=== PATIENT | male | born 1955 | race Caucasian/White ===

== ENCOUNTER 2018-06-16 07:33 | Emergency (ER) | payer BC ==
[~2018-06-16] VITALS: Ht 180.3 cm; Wt 90.7 kg
[~2018-06-16 07:33] MED LIST: AML5T GT; ASPI81CH49 OR; ATEN-60 OR; BUSP10TA90 PO; DIPH25TA43 OR; DULO60CA OR; FENO5TAB OR; FOLI1TAB6 OR; GABA300C10 PO; HYDR200T36 OR; LISI-646 OR; METH2.5T3 PO; NIAC500T13 PO; OMEPRAZOLE PO; PREDPOW63 PO; SIMV-13 OR; TRAM50TA2 PO; VENL25TA2 PO; [UNRECOGNIZED DRUG - CODE] OR
[2018-06-16 08:29] LABS: Alanine Aminotransferase 28 U/L (16-61); Anion Gap 13 (5-15); Aspartate Aminotransferase 27 U/L (15-37); BUN/Creatinine Ratio 14.6; Blood Urea Nitrogen 13 mg/dL (7-18); Calcium 8.4 mg/dL (8.5-10.1); Carbon Dioxide 19 mmol/L (21-32); Chloride 107 mmol/L (98-107); GFR African American 111 mL/min; GFR Non-African American 92 mL/min; Glucose 89 mg/dL (74-106); Potassium 3.7 mmol/L (3.5-5.1); Sodium 139 mmol/L (136-145)
[2018-06-16 08:33] LABS: Alkaline Phosphatase 91 U/L (45-117); Bilirubin, Total 0.6 mg/dL (0.2-1.0); Total Protein 7.3 g/dL (6.4-8.2)
[2018-06-16 08:36] LABS: Basophils # (auto) 0.1 uL; Basophils % (auto) 0.7 % (0.0-2.0); Eosinophils # (auto) 0.4 uL; Eosinophils % (auto) 3.5 % (0.0-7.0); Hemoglobin 14.8 g/dL (13.5-17.5); Lymphocytes % (auto) 19.6 % (10.0-50.0); Mean Corpuscular Hemoglobin 31.3 pg (28.0-32.0); Mean Corpuscular Hgb Conc. 34.4 g/dL (32.0-36.0); Mean Corpuscular Volume 91.1 fL (80.0-100.0); Monocytes # (auto) 0.9 uL; Monocytes % (auto) 8.5 % (0.0-12.0); Neutrophils # (auto) 7.1 uL; Neutrophils % (auto) 67.7 % (37.0-80.0); Nucleated Red Blood Cells % 0.1 %; Platelet Count (auto) 279 10^3/uL (140-450); Red Blood Cells 4.71 10^6/uL (4.5-5.90); Red Cell Distribution Width 15.7 % (11.8-14.3); White Blood Cell 10.4 10^3/uL (4.4-10.8)
[2018-06-16] MEDS: SODIUM CHLORIDE 0.9% 1,000 ML IV ONE ×2 (09:11→09:50)
[2018-06-16 10:28] VITALS: BP 130/89
[2018-06-16 11:30] LABS: Urine WBC None Seen /hpf (0 - 3)
[2018-06-16 11:53] LABS: Urine Bacteria NONE SEEN /hpf (None Seen); Urine Blood Negative /uL (Negative); Urine Mucus FEW (None Seen); Urine Specific Gravity 1.015 (1.001-1.035)
[2018-06-16 13:50] LABS: Alcohol, Urine < 3.0 mg/dL (0-5); Amphetamine Screen, Urine NEGATIVE (NEGATIVE); Barbiturate Scree,Urine NEGATIVE (NEGATIVE); Benzodiazephine Screen, Urine POSITIVE (NEGATIVE); Cannabinoid Screen, Urine POSITIVE (NEGATIVE); Cocaine Screen, Urine NEGATIVE (NEGATIVE); Opiate Scree,Urine NEGATIVE (NEGATIVE); Phencyclidine Screen, Urine NEGATIVE (NEGATIVE)
== END 2018-06-16 12:30 | disposition home or self-care (01) ==
LOC: EDBD 07:33 → ER 07:37
CPT/HCPCS: 36415 ×2; 70450 ×2; 80053 ×2; 80307 ×2; 81001 ×2; 84484 ×2; 85025 ×2; 93005 ×2; 96360 ×2; 96361 ×2; 99284; J7030

== ENCOUNTER 2018-08-19 03:18 | Inpatient (IN) | payer BC ==
[~2018-08-19] VITALS: Ht 180.3 cm; Wt 86.0 kg
[2018-08-19] MEDS ORDERED: SODIUM CHLORIDE 0.9% 1,000 ML IV ONE ×2 (06:59)
[2018-08-19] MEDS ORDERED: THIAMINE 100mg/ml INJ (200mg/2ml VIAL) IV ONE ×2 (07:00→10:00)
[2018-08-19] MEDS ORDERED: chlordiazePOXIDE HCL 25 MG CAP PO ONE (07:00)
[2018-08-19 07:33] LABS: Basophils # (auto) 0 uL; Basophils % (auto) 0.4 % (0.0-2.0); Eosinophils # (auto) 0.1 uL; Eosinophils % (auto) 0.8 % (0.0-7.0); Hemoglobin 15.3 g/dL (13.5-17.5); Lymphocytes # (auto) 1.5 uL; Lymphocytes % (auto) 15.8 % (10.0-50.0); Mean Corpuscular Hemoglobin 31.1 pg (28.0-32.0); Mean Corpuscular Hgb Conc. 33.9 g/dL (32.0-36.0); Mean Corpuscular Volume 91.7 fL (80.0-100.0); Monocytes # (auto) 0.7 uL; Monocytes % (auto) 6.9 % (0.0-12.0); Neutrophils # (auto) 7.3 uL; Neutrophils % (auto) 76.1 % (37.0-80.0); Nucleated Red Blood Cells % 0.1 %; Platelet Count (auto) 248 10^3/uL (140-450); Red Blood Cells 4.91 10^6/uL (4.5-5.90); Red Cell Distribution Width 16.8 % (11.8-14.3); White Blood Cell 9.5 10^3/uL (4.4-10.8)
[2018-08-19 07:35] LABS: Urine Bacteria NONE SEEN /hpf (None Seen); Urine Blood Negative /uL (Negative); Urine WBC <1 /hpf (0 - 3)
[2018-08-19 07:40] LABS: Albumin 3.5 g/dL (3.4-5.0); BUN/Creatinine Ratio 8.1; Calcium 8.6 mg/dL (8.5-10.1)
[2018-08-19 07:42] LABS: Alcohol, Urine < 3.0 mg/dL (0-5); Amphetamine Screen, Urine NEGATIVE (NEGATIVE); Barbiturate Scree,Urine NEGATIVE (NEGATIVE); Benzodiazephine Screen, Urine POSITIVE (NEGATIVE); Cannabinoid Screen, Urine POSITIVE (NEGATIVE); Cocaine Screen, Urine NEGATIVE (NEGATIVE); Opiate Scree,Urine NEGATIVE (NEGATIVE); Phencyclidine Screen, Urine NEGATIVE (NEGATIVE)
[2018-08-19 07:43] LABS: Bilirubin, Total 0.7 mg/dL (0.2-1.0)
[2018-08-19 07:45] LABS: Salicylate < 1.7 mg/dL (2.8-20.0)
[2018-08-19 08:06] LABS: Acetaminophen < 2.0 ug/mL (10-30)
[2018-08-19] MEDS ORDERED: THIAMINE HCL 100 MG TAB PO ONE (08:30)
[2018-08-19] MEDS ORDERED: LORazepam 0.5 MG TAB PO ONE (09:30)
[2018-08-19] MEDS ORDERED: MORPHINE SULFATE 4 MG/ML SYR/VIAL IV PRN (10:00)
[2018-08-19] MEDS ORDERED: ACETAMINOPHEN 500 MG TAB PO PRN (10:00)
[2018-08-19] MEDS ORDERED: NALBUPHINE HCL 10 MG/1ml INJECTION IV PRN (10:00)
[2018-08-19] MEDS ORDERED: traMADol HCL 50 MG TAB PO PRN (10:00)
[2018-08-19] MEDS ORDERED: PROMETHAZINE HCL 25 MG/ML 1ML IV PRN (10:00)
[2018-08-19] MEDS ORDERED: NITROGLYCERIN 0.4 MG SL TAB SL PRN (10:00)
[2018-08-19] MEDS ORDERED: TEMAZEPAM 15 MG CAP PO PRN (10:00)
[2018-08-19] MEDS: SODIUM CHLORIDE 0.9% 1,000 ML IV SCH ×3 (10:33→21:41)
[2018-08-19] MEDS: THIAMINE 100mg/ml INJ (200mg/2ml VIAL) IV SCH (10:33)
[2018-08-19] MEDS: FOLIC ACID 1 MG TAB PO SCH (10:41)
[2018-08-19] MEDS: ASPirin 81 mg TAB PO SCH (10:41)
[2018-08-19] MEDS: ATORVASTATIN 20 MG TAB PO SCH (10:42)
[2018-08-19] MEDS: PANTOPRAZOLE 40 MG TAB PO SCH (10:42)
[2018-08-19] MEDS: HYDROXYCHLOROQUINE SULFATE 200 MG TAB PO SCH (10:44)
[2018-08-19] MEDS: busPIRone HCL 10 MG TAB PO SCH ×2 (10:45→21:20)
[2018-08-19] MEDS: DULoxetine HCL 30 MG CAP PO SCH (10:48)
[2018-08-19] MEDS: [UNRECOGNIZED DRUG - OTHER] OR SCH ×2 (10:49→22:00)
[2018-08-19] MEDS: ATENOLOL 50 MG TAB PO SCH (10:50)
[2018-08-19] MEDS: FENOFIBRATE 145MG TAB OR SCH (10:51)
[2018-08-19] MEDS: predniSONE 20 MG TAB PO SCH (10:54)
[2018-08-19] MEDS: amLODIPine BESYLATE 5 MG TAB PO SCH (10:56)
[2018-08-19] MEDS: LISINOPRIL 20 MG TAB PO SCH (10:56)
[2018-08-19] MEDS: chlordiazePOXIDE HCL 25 MG CAP PO SCH ×2 (13:07→18:00)
[2018-08-19] MEDS: VENLAFAXINE HCL 25MG TABLET PO SCH (16:09)
[2018-08-19] MEDS: chlordiazePOXIDE HCL 25 MG CAP PO PRN ×2 (17:13→21:20)
[2018-08-19] MEDS: LORazepam 0.5 MG TAB PO PRN (17:13)
[2018-08-19 21:47] VITALS: BP 128/73
[2018-08-19 21:59] LABS: Creatine Kinase IFCC 65 U/L (39-308)
[2018-08-20] MEDS: chlordiazePOXIDE HCL 25 MG CAP PO SCH ×5 (00:13→23:29)
[2018-08-20] MEDS: LORazepam 0.5 MG TAB PO PRN ×2 (00:15→08:19)
[2018-08-20 05:00] VITALS: BP 136/79
[2018-08-20 09:00] VITALS: BP 161/86
[2018-08-20] MEDS: FENOFIBRATE 145MG TAB OR SCH (10:00)
[2018-08-20] MEDS: [UNRECOGNIZED DRUG - OTHER] OR SCH ×2 (10:00→21:14)
[2018-08-20] MEDS: THIAMINE 100mg/ml INJ (200mg/2ml VIAL) IV SCH (10:00)
[2018-08-20] MEDS: DULoxetine HCL 30 MG CAP PO SCH (10:57)
[2018-08-20] MEDS: ATORVASTATIN 20 MG TAB PO SCH (10:57)
[2018-08-20] MEDS: VENLAFAXINE HCL 25MG TABLET PO SCH (10:58)
[2018-08-20] MEDS: ASPirin 81 mg TAB PO SCH (10:58)
[2018-08-20] MEDS: HYDROXYCHLOROQUINE SULFATE 200 MG TAB PO SCH (10:59)
[2018-08-20] MEDS: busPIRone HCL 10 MG TAB PO SCH ×2 (10:59→21:14)
[2018-08-20] MEDS: FOLIC ACID 1 MG TAB PO SCH (10:59)
[2018-08-20] MEDS: ATENOLOL 50 MG TAB PO SCH (11:00)
[2018-08-20] MEDS: amLODIPine BESYLATE 5 MG TAB PO SCH (11:00)
[2018-08-20] MEDS: LISINOPRIL 20 MG TAB PO SCH (11:01)
[2018-08-20] MEDS: PANTOPRAZOLE 40 MG TAB PO SCH (11:12)
[2018-08-20] MEDS: predniSONE 20 MG TAB PO SCH (11:12)
[2018-08-20] MEDS: SODIUM CHLORIDE 0.9% 1,000 ML IV SCH (11:15)
[2018-08-20] MEDS ORDERED: IOHEXOL 300 MG/ML 100ML BOTTLE IJ ONE (12:24)
[2018-08-20 14:14] VITALS: BP 154/84
[2018-08-20 16:27] VITALS: BP 137/80
[2018-08-20 22:00] VITALS: BP 112/69
[2018-08-21] MEDS: SODIUM CHLORIDE 0.9% 1,000 ML IV SCH ×2 (03:03→10:00)
[2018-08-21 05:00] VITALS: BP 158/89
[2018-08-21] MEDS: chlordiazePOXIDE HCL 25 MG CAP PO SCH ×2 (06:04→13:10)
[2018-08-21 08:00] VITALS: BP 142/83
[2018-08-21] MEDS: THIAMINE 100mg/ml INJ (200mg/2ml VIAL) IV SCH (10:00)
[2018-08-21] MEDS: ATENOLOL 50 MG TAB PO SCH (10:00)
[2018-08-21] MEDS: FENOFIBRATE 145MG TAB OR SCH (10:00)
[2018-08-21] MEDS: [UNRECOGNIZED DRUG - OTHER] OR SCH (10:00)
[2018-08-21] MEDS: VENLAFAXINE HCL 25MG TABLET PO SCH (10:17)
[2018-08-21] MEDS: HYDROXYCHLOROQUINE SULFATE 200 MG TAB PO SCH (10:17)
[2018-08-21] MEDS: busPIRone HCL 10 MG TAB PO SCH (10:18)
[2018-08-21] MEDS: DULoxetine HCL 30 MG CAP PO SCH (10:18)
[2018-08-21] MEDS: ASPirin 81 mg TAB PO SCH (10:18)
[2018-08-21] MEDS: ATORVASTATIN 20 MG TAB PO SCH (10:18)
[2018-08-21] MEDS: predniSONE 20 MG TAB PO SCH (10:18)
[2018-08-21] MEDS: PANTOPRAZOLE 40 MG TAB PO SCH (10:18)
[2018-08-21] MEDS: FOLIC ACID 1 MG TAB PO SCH (10:18)
[2018-08-21] MEDS: LISINOPRIL 20 MG TAB PO SCH (10:19)
[2018-08-21] MEDS: amLODIPine BESYLATE 5 MG TAB PO SCH (10:19)
== END 2018-08-21 13:20 | disposition short-term general hospital (02) | DRG 897 ==
LOC: ER 03:22 → TELE 09:58 → TELE-WESTW 11:35
PROVIDERS: ADMIT Internal Medicine; ATTEND Internal Medicine
DX: F10.231 Alcohol dependence with withdrawal delirium (principal); E11.9 Type 2 diabetes mellitus without complications; I10 Essential (primary) hypertension; E78.5 Hyperlipidemia, unspecified; M19.90 Unspecified osteoarthritis, unspecified site; F41.9 Anxiety disorder, unspecified; F17.210 Nicotine dependence, cigarettes, uncomplicated; E66.9 Obesity, unspecified; Z68.26 Body mass index [BMI] 26.0-26.9, adult; Z88.8 Allergy status to other drugs, medicaments and biological substances; Z80.1 Family history of malignant neoplasm of trachea, bronchus and lung; Z82.3 Family history of stroke; Z82.49 Family history of ischemic heart disease and other diseases of the circulatory system
CPT/HCPCS: 36415; 70487; 80053; 80307; 80329; 81001; 82550; 84484; 85025; 93005; 94761; 96360; 96361; G0378

== ENCOUNTER 2018-10-16 19:33 | Emergency (ER) | payer BC ==
[~2018-10-16] VITALS: Ht 180.3 cm; Wt 99.8 kg
[2018-10-16] MEDS ORDERED: SODIUM CHLORIDE 0.9% 1,000 ML IVB ONE (19:49)
[2018-10-16] MEDS ORDERED: LORazepam 2MG/ML-1ML VIAL IV ONE (20:00)
[2018-10-16 20:29] LABS: Basophils # (auto) 0.1 uL; Basophils % (auto) 0.9 % (0.0-2.0); Eosinophils # (auto) 0.4 uL; Eosinophils % (auto) 4.3 % (0.0-7.0); Hematocrit 45.5 % (41.0-53.0); Hemoglobin 15.3 g/dL (13.5-17.5); Lymphocytes # (auto) 3.6 uL; Lymphocytes % (auto) 36.2 % (10.0-50.0); Mean Corpuscular Hemoglobin 30.4 pg (28.0-32.0); Mean Corpuscular Hgb Conc. 33.6 g/dL (32.0-36.0); Mean Corpuscular Volume 90.5 fL (80.0-100.0); Monocytes # (auto) 0.9 uL; Monocytes % (auto) 8.9 % (0.0-12.0); Neutrophils % (auto) 49.7 % (37.0-80.0); Nucleated Red Blood Cells % 0.1 %; Platelet Count (auto) 287 10^3/uL (140-450); Red Blood Cells 5.02 10^6/uL (4.5-5.90); Red Cell Distribution Width 16.1 % (11.8-14.3)
[2018-10-16 20:35] LABS: Albumin 3.6 g/dL (3.4-5.0); Calcium 8.7 mg/dL (8.5-10.1); Magnesium 2.5 mg/dL (1.6-2.6); Potassium 3.6 mmol/L (3.5-5.1)
[2018-10-16 20:40] LABS: BUN/Creatinine Ratio 10.4; Bilirubin, Total 0.3 mg/dL (0.2-1.0); Total Protein 7.1 g/dL (6.4-8.2)
[2018-10-16 22:47] LABS: Amphetamine Screen, Urine NEGATIVE (NEGATIVE); Barbiturate Scree,Urine NEGATIVE (NEGATIVE); Benzodiazephine Screen, Urine NEGATIVE (NEGATIVE); Cannabinoid Screen, Urine NEGATIVE (NEGATIVE); Cocaine Screen, Urine NEGATIVE (NEGATIVE); Opiate Scree,Urine NEGATIVE (NEGATIVE); Phencyclidine Screen, Urine NEGATIVE (NEGATIVE)
[2018-10-16] MEDS ORDERED: SODIUM CHLORIDE 0.9% 1,000 ML IV ONE (23:00)
[2018-10-17] MEDS ORDERED: SODIUM CHLORIDE 0.9% 1,000 ML IV ONE
[2018-10-17 07:37] VITALS: BP 150/77
[2018-10-17] MEDS ORDERED: GABAPENTIN 100 MG CAP PO ONE (09:45)
[2018-10-17] MEDS ORDERED: HYDROcodone-ACET 5/325MG TAB PO ONE (09:45)
== END 2018-10-17 12:27 | disposition short-term general hospital (02) ==
LOC: ER 19:36
DX: R45.851 Suicidal ideations (principal); F10.229 Alcohol dependence with intoxication, unspecified; M19.90 Unspecified osteoarthritis, unspecified site; E78.5 Hyperlipidemia, unspecified; I10 Essential (primary) hypertension; F32.9 Major depressive disorder, single episode, unspecified; F17.210 Nicotine dependence, cigarettes, uncomplicated; F12.90 Cannabis use, unspecified, uncomplicated; Z88.8 Allergy status to other drugs, medicaments and biological substances; Z79.82 Long term (current) use of aspirin; Z79.899 Other long term (current) drug therapy
CPT/HCPCS: 36415; 80053; 80307; 80320; 83735; 85025; 94761; 96374; 99285; J2060; J7030

== ENCOUNTER 2019-01-05 20:42 | Emergency (ER) | payer BC ==
[~2019-01-05] VITALS: Ht 180.3 cm; Wt 117.9 kg
[2019-01-05] MEDS ORDERED: ONDANSETRON HCL 4 MG/2 ML VIAL IV ONE (21:00)
[2019-01-05] MEDS ORDERED: MORPHINE SULFATE 4 MG/ML SYR/VIAL IV ONE ×2 (21:00→22:30)
[2019-01-05 21:28] LABS: Hematocrit 43.3 % (41.0-53.0); Hemoglobin 14.2 g/dL (13.5-17.5); Mean Corpuscular Hgb Conc. 32.9 g/dL (32.0-36.0); Mean Corpuscular Volume 91.1 fL (80.0-100.0); Platelet Count (auto) 260 10^3/uL (140-450); Red Blood Cells 4.76 10^6/uL (4.5-5.90); Red Cell Distribution Width 16.6 % (11.8-14.3); White Blood Cell 12.8 10^3/uL (4.4-10.8)
[2019-01-05 21:36] LABS: Band Neutrophils % (manual) 0; Basophils % (manual) 0 (0.0-2.0); Blast Cells 0; Metamyelocytes % 0; Myelocytes % 0; Promyelocytes % 0; Reactive Lymphocytes 0
[2019-01-05 21:39] LABS: INR < 0.93 (0.9-1.15)
[2019-01-05 21:41] LABS: Eosinophils % (manual) 1 (0-7); Lymphocytes % (manual) 15 (10.0-50.0); Monocytes % (manual) 10 (0-12)
[2019-01-05 21:48] LABS: Albumin 3.6 g/dL (3.4-5.0); BUN/Creatinine Ratio 11.9; Calcium 8.1 mg/dL (8.5-10.1); Potassium 3.9 mmol/L (3.5-5.1)
[2019-01-05 21:52] LABS: Bilirubin, Total 0.3 mg/dL (0.2-1.0)
[2019-01-05] MEDS ORDERED: SODIUM CHLORIDE 0.9% 1,000 ML IV ONE (22:30)
[2019-01-05] MEDS ORDERED: cefTRIAXone 1GM/50ML D5W 50 ML IV ONE (22:45)
[2019-01-05 23:39] VITALS: BP 123/81
[2019-01-06] MEDS ORDERED: HYDROmorphone HCL 2 MG/ML VL IV ONE ×2 (00:45)
[2019-01-06] MEDS ORDERED: PROMETHAZINE HCL 25 MG/ML 1ML IV ONE (00:45)
[2019-01-06] MEDS ORDERED: PROMETHAZINE HCL 25 MG/ML 1ML ONE (00:47)
== END 2019-01-06 00:53 | disposition short-term general hospital (02) ==
LOC: ER 20:42
DX: S82.391B Other fracture of lower end of right tibia, initial encounter for open fracture type I or II (principal); S82.451A Displaced comminuted fracture of shaft of right fibula, initial encounter for closed fracture; S91.031A Puncture wound without foreign body, right ankle, initial encounter; F17.210 Nicotine dependence, cigarettes, uncomplicated; I10 Essential (primary) hypertension; F12.10 Cannabis abuse, uncomplicated; Z88.8 Allergy status to other drugs, medicaments and biological substances; Z79.899 Other long term (current) drug therapy; W01.0XXA Fall on same level from slipping, tripping and stumbling without subsequent striking against object, initial encounter; Y93.89 Activity, other specified; Y92.89 Other specified places as the place of occurrence of the external cause; Y99.8 Other external cause status
CPT/HCPCS: 29505; 36415; 73610; 80053; 85007; 85027; 85610; 96365; 96375; 96376; 99285; J0696; J1170; J2270; J2405; J2550; J7030

== ENCOUNTER 2019-05-09 16:50 | Emergency (ER) | payer BC ==
[~2019-05-09] VITALS: Ht 177.8 cm; Wt 90.7 kg
[2019-05-09] MEDS ORDERED: SODIUM CHLORIDE 0.9% 1,000 ML IVB ONE (17:38)
[2019-05-09] MEDS ORDERED: LORazepam 2MG/ML-1ML VIAL IV ONE (17:45)
[2019-05-09 18:17] LABS: Basophils # (auto) 0 uL; Basophils % (auto) 0.4 % (0.0-2.0); Eosinophils # (auto) 0.2 uL; Eosinophils % (auto) 1.9 % (0.0-7.0); Hematocrit 43.1 % (41.0-53.0); Hemoglobin 14.4 g/dL (13.5-17.5); Lymphocytes # (auto) 2.4 uL; Lymphocytes % (auto) 25.3 % (10.0-50.0); Mean Corpuscular Hemoglobin 27.2 pg (28.0-32.0); Mean Corpuscular Hgb Conc. 33.3 g/dL (32.0-36.0); Mean Corpuscular Volume 81.7 fL (80.0-100.0); Monocytes # (auto) 0.8 uL; Monocytes % (auto) 8.9 % (0.0-12.0); Neutrophils % (auto) 63.5 % (37.0-80.0); Nucleated Red Blood Cells % 0.1 %; Platelet Count (auto) 300 10^3/uL (140-450); Red Blood Cells 5.28 10^6/uL (4.5-5.90); Red Cell Distribution Width 16.7 % (11.8-14.3); White Blood Cell 9.4 10^3/uL (4.4-10.8)
[2019-05-09 18:26] LABS: Salicylate < 1.7 mg/dL (2.8-20.0)
[2019-05-09 18:27] LABS: BUN/Creatinine Ratio 13.7; Calcium 8.1 mg/dL (8.5-10.1); Potassium 3.9 mmol/L (3.5-5.1)
[2019-05-09 18:29] LABS: Acetaminophen < 2.0 ug/mL (10-30)
[2019-05-09 18:39] LABS: Bilirubin, Total 0.3 mg/dL (0.2-1.0); Total Protein 7.1 g/dL (6.4-8.2)
[2019-05-09] MEDS ORDERED: ONDANSETRON HCL 4 MG/2 ML VIAL IV ONE (22:00)
[2019-05-09] MEDS ORDERED: ACETAMINOPHEN 325 MG TAB PO ONE (23:30)
[2019-05-09] MEDS ORDERED: SODIUM CHLORIDE 0.9% 1,000 ML IV ONE (23:30)
[2019-05-10] MEDS ORDERED: PROMETHAZINE HCL 25 MG/ML 1ML IV ONE
[2019-05-10] MEDS ORDERED: KETOROLAC TROMETH 30 MG/ML 1ML VIAL IV ONE
[2019-05-10 09:14] VITALS: BP 159/89
== END 2019-05-10 09:16 | disposition home or self-care (01) ==
LOC: EDUNIT# 16:50 → EDBD 16:50 → ER 17:16
DX: F10.129 Alcohol abuse with intoxication, unspecified (principal); F41.9 Anxiety disorder, unspecified; F32.9 Major depressive disorder, single episode, unspecified; F17.210 Nicotine dependence, cigarettes, uncomplicated; J45.909 Unspecified asthma, uncomplicated; K21.9 Gastro-esophageal reflux disease without esophagitis; E78.5 Hyperlipidemia, unspecified; I10 Essential (primary) hypertension; Y90.8 Blood alcohol level of 240 mg/100 ml or more
CPT/HCPCS: 36415; 80053; 80320; 80329; 85025; 96361; 96374; 96375; 99284; J1885; J2060; J2405; J2550; J7030

== ENCOUNTER 2019-07-06 04:05 | Emergency (ER) | payer BC ==
[~2019-07-06] VITALS: Ht 180.3 cm; Wt 108.9 kg
[2019-07-06] MEDS ORDERED: LORazepam 2MG/ML-1ML VIAL IV ONE (05:30)
[2019-07-06 06:09] LABS: Basophils # (auto) 0.1 uL; Basophils % (auto) 0.8 % (0.0-2.0); Eosinophils # (auto) 0.2 uL; Eosinophils % (auto) 1.6 % (0.0-7.0); Hematocrit 44.1 % (41.0-53.0); Hemoglobin 14.4 g/dL (13.5-17.5); Lymphocytes % (auto) 21.1 % (10.0-50.0); Mean Corpuscular Hgb Conc. 32.7 g/dL (32.0-36.0); Mean Corpuscular Volume 82.5 fL (80.0-100.0); Monocytes # (auto) 1.2 uL; Monocytes % (auto) 8.2 % (0.0-12.0); Neutrophils # (auto) 9.6 uL; Neutrophils % (auto) 68.3 % (37.0-80.0); Nucleated Red Blood Cells % 0.3 %; Platelet Count (auto) 278 10^3/uL (140-450); Red Blood Cells 5.34 10^6/uL (4.5-5.90); Red Cell Distribution Width 17.4 % (11.8-14.3)
[2019-07-06 06:16] LABS: Albumin 3.3 g/dL (3.4-5.0); Anion Gap 14 (5-15); Calcium 9.3 mg/dL (8.5-10.1); Carbon Dioxide 16 mmol/L (21-32); Chloride 102 mmol/L (98-107); Potassium 4.5 mmol/L (3.5-5.1); Sodium 132 mmol/L (136-145)
[2019-07-06 06:24] LABS: Alanine Aminotransferase 32 U/L (16-61); Alkaline Phosphatase 108 U/L (45-117); Aspartate Aminotransferase 26 U/L (15-37); Bilirubin, Total 0.3 mg/dL (0.2-1.0); Blood Urea Nitrogen 9 mg/dL (7-18); GFR African American 122 mL/min; GFR Non-African American 101 mL/min; Glucose 84 mg/dL (74-106); Magnesium 2.4 mg/dL (1.6-2.6); Total Protein 7.6 g/dL (6.4-8.2)
[2019-07-06] MEDS ORDERED: SODIUM CHLORIDE 0.9% 1,000 ML IV ONE ×2 (07:22)
[2019-07-06] MEDS ORDERED: THIAMINE 100mg/ml INJ (200mg/2ml VIAL) IV ONE (07:30)
[2019-07-06 07:35] VITALS: BP 146/80
== END 2019-07-06 09:06 | disposition home or self-care (01) ==
LOC: EDBD 04:05 → ER 04:06
DX: F10.10 Alcohol abuse, uncomplicated (principal); E86.0 Dehydration; D72.829 Elevated white blood cell count, unspecified; M19.90 Unspecified osteoarthritis, unspecified site; J45.909 Unspecified asthma, uncomplicated; K21.9 Gastro-esophageal reflux disease without esophagitis; E78.5 Hyperlipidemia, unspecified; I10 Essential (primary) hypertension; F17.210 Nicotine dependence, cigarettes, uncomplicated; Z88.8 Allergy status to other drugs, medicaments and biological substances; Y90.9 Presence of alcohol in blood, level not specified
CPT/HCPCS: 36415; 71045; 80053; 80320; 83735; 84484; 85025; 93005; 96361; 96374; 96375; 99284; J2060; J3411; J7030

== ENCOUNTER 2019-07-10 03:08 | Emergency (ER) | payer BC ==
[~2019-07-10] VITALS: Ht 180.3 cm; Wt 99.8 kg
[2019-07-10 03:19] VITALS: BP 157/92
[2019-07-10] MEDS ORDERED: LORazepam 0.5 MG TAB PO ONE (06:15)
== END 2019-07-10 07:02 | disposition home or self-care (01) ==
LOC: EDBD 03:08 → ER 03:13
DX: F41.9 Anxiety disorder, unspecified (principal); J45.909 Unspecified asthma, uncomplicated; F32.9 Major depressive disorder, single episode, unspecified; K21.9 Gastro-esophageal reflux disease without esophagitis; I10 Essential (primary) hypertension; E78.00 Pure hypercholesterolemia, unspecified; F17.210 Nicotine dependence, cigarettes, uncomplicated

== ENCOUNTER 2020-02-03 07:20 | Emergency (ER) | payer BC ==
[~2020-02-03] VITALS: Ht 180.3 cm; Wt 99.8 kg
[~2020-02-03 07:20] MED LIST changes: +METH2.5T PO; -METH2.5T3 PO; -NIAC500T13 PO; +NIAC500T93 PO; -VENL25TA2 PO; +VENL25TA3 PO
[2020-02-03] MEDS ORDERED: cloNIDine HCL 0.1 MG TAB PO ONE (07:30)
[2020-02-03] MEDS ORDERED: LORazepam 2MG/ML-1ML VIAL IV ONE (07:30)
[2020-02-03 08:39] LABS: Eosinophils # (auto) 0.2 10 ^3/uL (0-0.8); Hemoglobin 14.3 g/dL (13.5-17.5); Monocytes # (auto) 0.4 10 ^3/uL (0-1.3); Neutrophils # (auto) 5.1 10 ^3/uL (1.6-8.6); Red Cell Distribution Width 17.8 % (11.8-14.3); White Blood Cell 7.1 10^3/uL (4.4-10.8)
[2020-02-03 08:41] LABS: Basophils # (auto) 0.1 10 ^3/uL (0-0.2); Basophils % (auto) 0.8 % (0.0-2.0); Eosinophils % (auto) 3.1 % (0.0-7.0); Hematocrit 45.2 % (41.0-53.0); Lymphocytes # (auto) 1.4 10 ^3/uL (0.4-5.4); Lymphocytes % (auto) 19.7 % (10.0-50.0); Mean Corpuscular Hemoglobin 25.4 pg (28.0-32.0); Mean Corpuscular Hgb Conc. 31.6 g/dL (32.0-36.0); Mean Corpuscular Volume 80.5 fL (80.0-100.0); Monocytes % (auto) 4.9 % (0.0-12.0); Neutrophils % (auto) 71.5 % (37.0-80.0); Nucleated Red Blood Cells % 0.1 %; Platelet Count (auto) 300 10^3/uL (140-450); Red Blood Cells 5.61 10^6/uL (4.5-5.90)
[2020-02-03] MEDS ORDERED: LORazepam 0.5 MG TAB PO ONE (08:45)
[2020-02-03 08:56] LABS: Albumin 3.1 g/dL (3.4-5.0); Anion Gap 8 (5-15); Blood Urea Nitrogen 7 mg/dL (7-18); Calcium 8.4 mg/dL (8.5-10.1); Carbon Dioxide 19 mmol/L (21-32); Chloride 110 mmol/L (98-107); Glucose 93 mg/dL (74-106); Sodium 137 mmol/L (136-145)
[2020-02-03 09:02] LABS: Alanine Aminotransferase 69 U/L (16-61); Alkaline Phosphatase 105 U/L (45-117); Aspartate Aminotransferase 48 U/L (15-37); BUN/Creatinine Ratio 7.4; Bilirubin, Total 0.4 mg/dL (0.2-1.0); GFR African American 104 mL/min; GFR Non-African American 86 mL/min
[2020-02-03 13:03] VITALS: BP 114/73
== END 2020-02-03 13:34 | disposition home or self-care (01) ==
LOC: ER 07:20
DX: R07.89 Other chest pain (principal); F41.9 Anxiety disorder, unspecified; F17.210 Nicotine dependence, cigarettes, uncomplicated; I10 Essential (primary) hypertension; K21.9 Gastro-esophageal reflux disease without esophagitis; E78.5 Hyperlipidemia, unspecified; Z79.899 Other long term (current) drug therapy; Z88.8 Allergy status to other drugs, medicaments and biological substances
CPT/HCPCS: 36415; 71045; 80053; 84484; 85025; 93005

== ENCOUNTER 2020-02-12 12:46 | Emergency (ER) | payer BC ==
[~2020-02-12] VITALS: Ht 180.3 cm; Wt 99.8 kg
[2020-02-12] MEDS ORDERED: cloNIDine HCL 0.1 MG TAB PO ONE (13:15)
[2020-02-12] MEDS ORDERED: LORazepam 0.5 MG TAB PO ONE (13:15)
[2020-02-12 13:49] LABS: Basophils # (auto) 0 10 ^3/uL (0-0.2); Basophils % (auto) 0.5 % (0.0-2.0); Eosinophils # (auto) 0.1 10 ^3/uL (0-0.8); Eosinophils % (auto) 1.4 % (0.0-7.0); Hematocrit 44.9 % (41.0-53.0); Hemoglobin 14.5 g/dL (13.5-17.5); Lymphocytes # (auto) 1.2 10 ^3/uL (0.4-5.4); Lymphocytes % (auto) 14.9 % (10.0-50.0); Mean Corpuscular Hemoglobin 26.2 pg (28.0-32.0); Mean Corpuscular Hgb Conc. 32.2 g/dL (32.0-36.0); Mean Corpuscular Volume 81.5 fL (80.0-100.0); Monocytes # (auto) 0.4 10 ^3/uL (0-1.3); Monocytes % (auto) 4.9 % (0.0-12.0); Neutrophils # (auto) 6.3 10 ^3/uL (1.6-8.6); Neutrophils % (auto) 78.3 % (37.0-80.0); Nucleated Red Blood Cells % 0.2 %; Platelet Count (auto) 276 10^3/uL (140-450); Red Blood Cells 5.51 10^6/uL (4.5-5.90); Red Cell Distribution Width 19.9 % (11.8-14.3)
[2020-02-12 13:59] LABS: Albumin 3.3 g/dL (3.4-5.0); Anion Gap 7 (5-15); Blood Urea Nitrogen 10 mg/dL (7-18); Carbon Dioxide 24 mmol/L (21-32); Chloride 109 mmol/L (98-107); Glucose 112 mg/dL (74-106); Sodium 140 mmol/L (136-145)
[2020-02-12 14:06] LABS: Alanine Aminotransferase 92 U/L (16-61); Alkaline Phosphatase 120 U/L (45-117); Aspartate Aminotransferase 73 U/L (15-37); BUN/Creatinine Ratio 9.4; Bilirubin, Total 0.5 mg/dL (0.2-1.0); GFR African American 90 mL/min; GFR Non-African American 75 mL/min; Total Protein 7.3 g/dL (6.4-8.2)
[2020-02-12 16:04] VITALS: BP 130/94
[2020-02-12 17:35] LABS: Urine WBC None Seen /hpf (0 - 3)
[2020-02-12 18:02] LABS: Urine Bacteria NONE SEEN /hpf (None Seen); Urine Blood Negative /uL (Negative); Urine Mucus FEW (None Seen); Urine Specific Gravity 1.019 (1.001-1.035)
== END 2020-02-12 16:14 | disposition home or self-care (01) ==
LOC: ER 12:46 → EDBD 12:46 → ER 16:14
DX: F41.9 Anxiety disorder, unspecified (principal); I10 Essential (primary) hypertension; F17.210 Nicotine dependence, cigarettes, uncomplicated; M19.90 Unspecified osteoarthritis, unspecified site; F32.9 Major depressive disorder, single episode, unspecified; K21.9 Gastro-esophageal reflux disease without esophagitis; E78.5 Hyperlipidemia, unspecified; Z79.899 Other long term (current) drug therapy; Z79.82 Long term (current) use of aspirin; Z88.8 Allergy status to other drugs, medicaments and biological substances
CPT/HCPCS: 36415; 80053; 81001; 84484; 85025; 93005

== ENCOUNTER 2020-04-10 06:46 | Emergency (ER) | payer BC ==
[~2020-04-10] VITALS: Ht 180.3 cm; Wt 104.3 kg
[2020-04-10 08:53] VITALS: BP 125/85
[2020-04-10] MEDS ORDERED: LORazepam 0.5 MG TAB PO ONE (09:00)
== END 2020-04-10 09:21 | disposition home or self-care (01) ==
LOC: ER 06:46
DX: F41.9 Anxiety disorder, unspecified (principal); M19.90 Unspecified osteoarthritis, unspecified site; J45.909 Unspecified asthma, uncomplicated; K21.9 Gastro-esophageal reflux disease without esophagitis; E78.5 Hyperlipidemia, unspecified; I10 Essential (primary) hypertension; F17.210 Nicotine dependence, cigarettes, uncomplicated

== ENCOUNTER 2020-10-14 06:34 | Emergency (ER) | payer BC ==
[~2020-10-14] VITALS: Ht 180.3 cm; Wt 104.3 kg
[~2020-10-14 06:34] MED LIST changes: -LISI-646 OR; +LISI20TA28 OR; +VENL1TAB96 PO; -VENL25TA3 PO
[2020-10-14] MEDS ORDERED: LORazepam 0.5 MG TAB PO ONE (08:00)
[2020-10-14 08:08] LABS: Basophils # (auto) 0 10 ^3/uL (0-0.2); Basophils % (auto) 0.3 % (0.0-2.0); Eosinophils # (auto) 0.1 10 ^3/uL (0-0.8); Eosinophils % (auto) 0.9 % (0.0-7.0); Hematocrit 45.1 % (41.0-53.0); Hemoglobin 15.1 g/dL (13.5-17.5); Lymphocytes # (auto) 1.4 10 ^3/uL (0.4-5.4); Lymphocytes % (auto) 12.3 % (10.0-50.0); Mean Corpuscular Hemoglobin 28.8 pg (28.0-32.0); Mean Corpuscular Hgb Conc. 33.6 g/dL (32.0-36.0); Mean Corpuscular Volume 85.7 fL (80.0-100.0); Monocytes # (auto) 0.7 10 ^3/uL (0-1.3); Monocytes % (auto) 6.1 % (0.0-12.0); Neutrophils # (auto) 9.4 10 ^3/uL (1.6-8.6); Neutrophils % (auto) 80.4 % (37.0-80.0); Nucleated Red Blood Cells % 0.2 %; Platelet Count (auto) 284 10^3/uL (140-450); Red Blood Cells 5.26 10^6/uL (4.5-5.90); Red Cell Distribution Width 18.6 % (11.8-14.3); White Blood Cell 11.7 10^3/uL (4.4-10.8)
[2020-10-14 08:26] LABS: Albumin 3.7 g/dL (3.4-5.0); Chloride 108 mmol/L (98-107); Sodium 140 mmol/L (136-145)
[2020-10-14 08:36] LABS: Alanine Aminotransferase 99 U/L (16-61); Alkaline Phosphatase 125 U/L (45-117); Anion Gap 16 (5-15); Aspartate Aminotransferase 61 U/L (15-37); BUN/Creatinine Ratio 10.7; Bilirubin, Total 0.5 mg/dL (0.2-1.0); Blood Urea Nitrogen 9 mg/dL (7-18); Calcium 8.9 mg/dL (8.5-10.1); Carbon Dioxide 16 mmol/L (21-32); GFR African American 118 mL/min; GFR Non-African American 97 mL/min; Glucose 112 mg/dL (74-106); Total Protein 7.7 g/dL (6.4-8.2)
[2020-10-14 08:59] VITALS: BP 149/86
== END 2020-10-14 09:43 | disposition home or self-care (01) ==
LOC: ER 06:34
DX: F41.0 Panic disorder [episodic paroxysmal anxiety] (principal); R07.9 Chest pain, unspecified; F10.10 Alcohol abuse, uncomplicated; F17.210 Nicotine dependence, cigarettes, uncomplicated; J45.909 Unspecified asthma, uncomplicated; K21.9 Gastro-esophageal reflux disease without esophagitis; E78.5 Hyperlipidemia, unspecified; I10 Essential (primary) hypertension; Z88.6 Allergy status to analgesic agent
CPT/HCPCS: 36415; 71046; 80053; 84484; 85025; 93005

== ENCOUNTER 2021-09-28 06:01 | Emergency (ER) | payer BC ==
[~2021-09-28] VITALS: Ht 180.3 cm; Wt 99.8 kg
[2021-09-28 07:06] LABS: Basophils # (auto) 0.1 10 ^3/uL (0-0.2); Basophils % (auto) 0.7 % (0.0-2.0); Eosinophils # (auto) 0.3 10 ^3/uL (0-0.8); Eosinophils % (auto) 3.2 % (0.0-7.0); Hematocrit 41.8 % (41.0-53.0); Hemoglobin 13.9 g/dL (13.5-17.5); Lymphocytes # (auto) 2.3 10 ^3/uL (0.4-5.4); Lymphocytes % (auto) 27.7 % (10.0-50.0); Mean Corpuscular Hemoglobin 28.4 pg (28.0-32.0); Mean Corpuscular Hgb Conc. 33.3 g/dL (32.0-36.0); Mean Corpuscular Volume 85.2 fL (80.0-100.0); Monocytes # (auto) 0.7 10 ^3/uL (0-1.3); Monocytes % (auto) 8.4 % (0.0-12.0); Neutrophils # (auto) 4.9 10 ^3/uL (1.6-8.6); Nucleated Red Blood Cells % 0.1 %; Red Blood Cells 4.91 10^6/uL (4.5-5.90); Red Cell Distribution Width 18.5 % (11.8-14.3); White Blood Cell 8.3 10^3/uL (4.4-10.8)
[2021-09-28 07:19] LABS: Albumin 3.3 g/dL (3.4-5.0); BUN/Creatinine Ratio 12.5; Calcium 8.5 mg/dL (8.5-10.1); Potassium 4.2 mmol/L (3.5-5.1)
[2021-09-28 07:29] LABS: Bilirubin, Total 0.3 mg/dL (0.2-1.0); Total Protein 6.8 g/dL (6.4-8.2)
[2021-09-28] MEDS ORDERED: SODIUM CHLORIDE 0.9% 1,000 ML IV ONE (07:45)
[2021-09-28] MEDS ORDERED: SODIUM CHLORIDE 0.9% 1,000 ML IVB ONE (07:45)
[2021-09-28] MEDS ORDERED: LORazepam 2MG/ML-1ML VIAL IV ONE (08:15)
[2021-09-28 10:00] VITALS: BP 146/73
[2021-09-28 10:15] LABS: Urine Bacteria NONE SEEN /hpf (None Seen); Urine Blood Negative /uL (Negative); Urine Mucus FEW (None Seen); Urine Specific Gravity 1.013 (1.001-1.035); Urine WBC <1 /hpf (0 - 3)
[2021-09-28 10:29] LABS: Amphetamine Screen, Urine NEGATIVE (NEGATIVE); Barbiturate Scree,Urine NEGATIVE (NEGATIVE); Benzodiazephine Screen, Urine NEGATIVE (NEGATIVE); Cannabinoid Screen, Urine NEGATIVE (NEGATIVE); Cocaine Screen, Urine NEGATIVE (NEGATIVE); Opiate Scree,Urine NEGATIVE (NEGATIVE); Phencyclidine Screen, Urine NEGATIVE (NEGATIVE)
== END 2021-09-28 11:37 | disposition home or self-care (01) ==
LOC: ER 06:01
DX: F10.239 Alcohol dependence with withdrawal, unspecified (principal); F41.8 Other specified anxiety disorders; M06.9 Rheumatoid arthritis, unspecified; I10 Essential (primary) hypertension; K21.9 Gastro-esophageal reflux disease without esophagitis; E78.5 Hyperlipidemia, unspecified; J45.909 Unspecified asthma, uncomplicated; F17.210 Nicotine dependence, cigarettes, uncomplicated; Z90.89 Acquired absence of other organs; Z79.82 Long term (current) use of aspirin; Z79.899 Other long term (current) drug therapy; Z88.8 Allergy status to other drugs, medicaments and biological substances; Y90.6 Blood alcohol level of 120-199 mg/100 ml
CPT/HCPCS: 36415; 71046; 80053; 80307; 81001; 83735; 84443; 84484; 85025; 93005; 96361; 96374; 99285; J2060; J7030

== ENCOUNTER 2022-02-25 05:18 | Emergency (ER) | payer BC ==
[~2022-02-25] VITALS: Ht 180.3 cm; Wt 109.1 kg
[2022-02-25 06:12] VITALS: BP 148/76
[2022-02-25 06:39] LABS: Basophils # (auto) 0.1 10 ^3/uL (0-0.2); Nucleated Red Blood Cells % 0.1 %; White Blood Cell 9.5 10^3/uL (4.4-10.8)
[2022-02-25 06:42] LABS: Basophils % (auto) 0.6 % (0.0-2.0); Eosinophils # (auto) 0.1 10 ^3/uL (0-0.8); Eosinophils % (auto) 0.6 % (0.0-7.0); Hematocrit 43.6 % (41.0-53.0); Lymphocytes # (auto) 1.4 10 ^3/uL (0.4-5.4); Lymphocytes % (auto) 14.8 % (10.0-50.0); Mean Corpuscular Hemoglobin 26.2 pg (28.0-32.0); Mean Corpuscular Volume 81.9 fL (80.0-100.0); Monocytes % (auto) 10.6 % (0.0-12.0); Neutrophils % (auto) 73.4 % (37.0-80.0); Red Blood Cells 5.33 10^6/uL (4.5-5.90)
[2022-02-25 06:49] LABS: Albumin 3.2 g/dL (3.4-5.0); BUN/Creatinine Ratio 12.9; Calcium 8.8 mg/dL (8.5-10.1); Potassium 4.3 mmol/L (3.5-5.1)
[2022-02-25 06:52] LABS: Bilirubin, Total 0.5 mg/dL (0.2-1.0); Total Protein 7.5 g/dL (6.4-8.2)
[2022-02-25] MEDS ORDERED: SODIUM CHLORIDE 0.9% 1,000 ML IV ONE (07:45)
[2022-02-25] MEDS ORDERED: LORazepam 2MG/ML-1ML VIAL IV ONE (08:00)
[2022-02-25] MEDS ORDERED: B-COMPLEX W/ C & FOLIC ACID(NEPHROVITE TAB) PO ONE (09:00)
[2022-02-25] MEDS ORDERED: FOLIC ACID 1 MG, MULTIPLE VITAMIN 10 ML, MAGNESIUM SULF SDV 50% 8 MEQ, THIAMINE INJ 100... INJ SCH ×5 (12:00)
== END 2022-02-25 12:19 | disposition left against medical advice (07) ==
LOC: ER 05:18
DX: F10.239 Alcohol dependence with withdrawal, unspecified (principal); M06.9 Rheumatoid arthritis, unspecified; F41.8 Other specified anxiety disorders; R74.8 Abnormal levels of other serum enzymes; I10 Essential (primary) hypertension; K21.9 Gastro-esophageal reflux disease without esophagitis; E78.5 Hyperlipidemia, unspecified; J45.909 Unspecified asthma, uncomplicated; F17.210 Nicotine dependence, cigarettes, uncomplicated; Z90.89 Acquired absence of other organs; Z79.82 Long term (current) use of aspirin; Z79.899 Other long term (current) drug therapy; Z88.8 Allergy status to other drugs, medicaments and biological substances; Z20.822 Contact with and (suspected) exposure to COVID-19; Y90.9 Presence of alcohol in blood, level not specified
CPT/HCPCS: 36415; 71045; 80053; 82962; 83735; 83880; 84484; 85025; 87426; 93005; 99285; J3411; J3475; J7030